=== PATIENT | female | born 1955 | race Caucasian/White ===

== ENCOUNTER 2020-04-11 10:13 | Emergency (ER) | payer MEDICARE, OTHER, SELFPAY ==
[2020-04-11] VITALS (17 sets, daily range): BP systolic 152–238; BP diastolic 70–126; PULSE 46–66; RESP 12–32; TEMP 36.4; O2SAT 97–100; BMI 30.9
--- NOTE | 2020-04-11 10:17 | XRR_ITS ---
PROCEDURE INFORMATION: Exam: XR Chest, 1 View Exam date and time: 04/11/2020 10:22 AM Age: 65 years old Clinical indication: Device placement; Ng tube; Additional info: Unresponsive TECHNIQUE: Imaging protocol: XR of the chest Views: 1 view. COMPARISON: CR Chest 1 [place] [id number] 07/31/2018 7:39 AM FINDINGS: Tubes, catheters and devices: Endotracheal and feeding tubes. The endotracheal tube terminates 2.0 cm above the rachel. The feeding tube courses into the gastric body with distal tip not visualized. Lungs: Hypoinflation and mild interstitial prominence. Pleural space: No significant pneumothorax or pleural effusion. Heart/Mediastinum: No cardiomegaly. Bones/joints: Multiple acute right rib fractures. XR/XR chest 1V portable [id number] IMPRESSION: Multiple acute right rib fractures. Endotracheal and feeding tube placement as described above.
--- NOTE | 2020-04-11 10:18 | CTR_ITS ---
PROCEDURE INFORMATION: Exam: CT Head Without Contrast Exam date and time: 04/11/2020 10:22 AM Age: 65 years old Clinical indication: Other: Unresponsive; Additional info: Symptoms of acute stroke TECHNIQUE: Imaging protocol: Computed tomography of the head without contrast. Radiation optimization: All CT scans at this facility use at least one of these dose optimization techniques: automated exposure control; mA and/or kV adjustment per patient size (includes targeted exams where dose is matched to clinical indication); or iterative reconstruction. COMPARISON: CT head wo con* [id number] 01/03/2018 9:06 PM RADIATION DOSE METRICS: Total DLP (mGy-cm): 793.31 FINDINGS: Brain: 2.7 cm mixed attenuation left subdural hematoma producing 1.8 cm of midline shift to the right. Emergent neurosurgical consultation recommended. Small-vessel ischemic change. Effacement of the left cortical sulci. Cerebral ventricles: Asymmetric caliber of the ventricles, with effacement of the left temporal and occipital horns. No hydrocephalus. Bones/joints: No acute calvarial pathology. Paranasal sinuses: Inflammatory change in the sinuses, disproportionately localized in the left maxillary sinus. Mastoid air cells: Partial opacification of the left mastoid air cells. Vasculature: Vascular and dural calcification. Soft tissues: Infiltration of subcutaneous fat in the left occipital region. CT/CT head wo con* [id number] IMPRESSION: 2.7 cm mixed attenuation left subdural hematoma producing 1.8 cm of midline shift to the right. Emergent neurosurgical consultation recommended. THIS REPORT CONTAINS FINDINGS THAT MAY BE CRITICAL TO PATIENT CARE. The findings were verbally communicated via telephone conference with ILAN Salamanca at 10:35 AM CDT on 04/11/2020. The findings were acknowledged and understood. Radiation Dose CTDIVOL = (mGy): DLP = 793.31 (mGy-cm)
--- NOTE | 2020-04-11 10:18 | ECG_ITS ---
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 Measurements Intervals [place] Rate: 52 P: 60 MT: 176 QRS: 52 QRSD: 100 T: 71 QT: 476 QTc: 444 Interpretive Statements SINUS BRADYCARDIA ST DEVIATION AND MODERATE T-WAVE ABNORMALITY, CONSIDER ANTERIOR ISCHEMIA [-0.1+ mV T WAVE IN V3/V4] Compared to ECG 07/31/2018 22:13:19 T-wave abnormality now present Possible ischemia now present Sinus rhythm no longer present Electronically Signed On 04-11-2020 22:04:03 CDT by Sarahi Campos M.D. [id number] f
[2020-04-11] MEDS: succinylcholine 20 mg/mL SDV 10mL 100 MG IVP (10:33)
[2020-04-11] MEDS: propofol 1,000 MG/100 ML INJ 6.7 MG IV (10:37)
[2020-04-11 10:49] LABS: Basophils # 0.1 10^3/uL (0.0-0.1); Basophils % 0.6 %; Eosinophils # 0.1 10^3/uL (0.0-0.8); Eosinophils % 0.4 %; Hematocrit 36.6 % (37.0-47.0); Hemoglobin 12.4 g/dL (11.5-15.3); Lymphocytes # 2.9 10^3/uL (0.8-4.8); Mean Corpuscular HGB Conc 33.9 g/dL (30.0-36.0); Mean Corpuscular Hemoglobin 30.1 pg (28.0-34.0); Mean Corpuscular Volume 88.8 fL (81-99); Mean Platelet Volume 8.3 fL (7.4-10.4); Monocytes # 0.9 10^3/uL (0.2-0.9); Monocytes % 4.8 %; Neutrophils # 15.05 10^3/uL (1.8-7.7); Neutrophils % 78.7 %; Nucleated Red Blood Cells % 0 %; Platelet Count 489 10^3/cmm (130-400); Red Blood Count 4.12 10^6/uL (4.1-5.3); White Blood Count 19.1 10^3/uL (4.0-10.0)
--- NOTE | 2020-04-11 11:04 | W.ED.NEUROSD ---
HPI - Neuro Symptoms/Deficit General: Chief Complaint: Neuro Symptoms/Deficit Stated Complaint: Stroke alert/unresponsive Time Seen by Provider: 04/11/20 10:17 History of Present Illness: HPI Narrative: 65-year-old female arrives by EMS approximately 30 to 45 minutes after being found down by the . She was found slumped and unresponsive on the toilet. She was last seen as an and known well at around 5 AM. On arrival here she has a GCS of 3 and is unresponsive to painful stimuli. Her only known anticoagulant is Plavix. All history is retrieved from an old H&P from July 2018. On arrival pt had GCS of 3 Last Observed Normal: 05:00 Timing confirmed by: family member Review of Systems General: Reports: ROS unobtainable due to endotracheal tube and ROS unobtainable due to medical condition NIH stroke score NIHSS: Level Of Consciousness - 1a: 3 If Intubated/Physcial Barrier - Explain: Patient is a GCS of 3 unable to assess Physical Exam HENMT: COMMON NORMALS: normocephalic and atraumatic HEAD & SCALP: normocephalic and atraumatic Eye: COMMON NORMALS: Equal, round and reactive pupils present, conjunctivae normal and no scleral icterus CONJUNCTIVA: Yes conjunctivae normal PUPIL: Yes Equal, round and reactive pupils present Neck/C-Spine: COMMON NORMALS: no JVD Resp: COMMON NORMALS: normal respiratory effort, No retractions, No use of accessory muscles and clear to auscultation bilaterally AUSCULTATION: clear to auscultation bilaterally Cardio: COMMON NORMALS: no JVD, regular rate, regular rhythm and No murmurs present (Cardio) RATE: regular rate RHYTHM: regular rhythm GI: COMMON NORMALS: Soft to palpation and No hepatosplenomegaly present AUSCULTATION: Yes normoactive bowel sounds PALPATION: Yes Soft to palpation, No Tenderness to palpation present (GI), No Guarding due to palpation present (GI) and Yes No hepatosplenomegaly present Neuro: CHARLENE COMA SCALE: document GCS findings Charlene coma scale eye opening: None Charlene coma scale verbal response: None Mcneal coma scale motor response: None Charlene coma scale total score: 3 Procedures Intubation Time out performed: Yes sedative: Etomidate paralytic: Succinylcholine Laryngoscope: fiber optic video scope Assist Device Used: fiber optic device ET Tube Size: 8.5 ET Tube Uncuffed: No Tube Secured Depth (cm): 22 Tube Placement Confirmation: visualized tube passing through cords, equal breath sounds bilaterally, no breath sounds over epigastrium and confirmation by capnometry Patient Tolerated Procedure: well Intubation Complications: none Course Vital Signs: Vital signs: Vital Signs Temperature 97.6 F 04/11/20 10:15 Pulse Rate 49 L 04/11/20 15:56 Respiratory Rate 18 04/11/20 15:56 Blood Pressure 165/94 04/11/20 15:56 Pulse Oximetry 99 04/11/20 15:56 MDM - Neuro Symptoms/Deficit MDM Narrative: Medical decision making narrative: Patient has acute subdural hematoma called and talked to neurosurgery they will accept her however given the timeframe she is already been down for quite some time her GCS was 3 when she arrived here she was emergently intubated surgeons not sure there can be able to do much for them and provide comfort cares discussed with the family multiple times they wish to proceed with transfer to see if there is any potential treatments available. Lab Data: Labs: Lab Results 04/11/20 04/11/20 04/11/20 Range/Units 10:34 10:34 10:34 WBC 19.1 H (4.0-10.0) 10^3/ uL RBC 4.12 (4.1-5.3) 10^6/u L Hgb 12.4 (11.5-15.3) g/dL Hct 36.6 L (37.0-47.0) % MCV 88.8 (81-99) fL MCH 30.1 (28.0-34.0) pg MCHC 33.9 (30.0-36.0) g/dL RDW 11.0 L (12.1-15.1) % Plt Count 489 H (130-400) 10^3/c mm MPV 8.3 (7.4-10.4) fL Neut % (Auto) 78.7 % Lymph % (Auto) 15.0 % [place] % (Auto) 4.8 % Eos % (Auto) 0.4 % Baso % (Auto) 0.6 % Neut # (Auto) 15.05 H (1.8-7.7) 10^3/u L Lymph # (Auto) 2.9 (0.8-4.8) 10^3/u L [place] # (Auto) 0.9 (0.2-0.9) 10^3/u L Eos # (Auto) 0.1 (0.0-0.8) 10^3/u L Baso # (Auto) 0.1 (0.0-0.1) 10^3/u L Nucleated RBC % (a uto) 0 % Nucleated RBCs # 0.0 /100WBC PT 12.40 (12.1-14.9) SECO NDS INR 0.90 (0.8-1.2) APTT 23.4 L (23.9-36.7) SECO NDS Specimen Type Sample Site ABG pH (7.35-7.45) ABG pCO2 (35-45) mmHg ABG pO2 (80.0-100.0) mmH g ABG HCO3 (22-26) mmol/L ABG O2 Saturation ABG Base Excess (-2.0-2.0) mmol/ L Darío Test A-a O2 Gradient (5-10) mmHg Hematocrit (37-47) % Hgb O2 Saturation (95-100) % Carboxyhemoglobin (0.4-20.1) %THgb Methemoglobin (0.4-1.5) % Total Hemoglobin (12-16) g/dL Ionized Calcium (1.1-1.4) mmol/L O2 Delivery Device FiO2 % Tidal Volume PEEP cmH20 Nursing Unit Coordinator ID Sodium 123 L (136-145) mmol/L Potassium 3.5 (3.5-5.1) mmol/L Chloride 89 L (98-107) mmol/L Carbon Dioxide 20 L (22-29) mmol/L Anion Gap 17.5 (5-19) BUN 8 (8-23) mg/dL Creatinine 0.6 (0.5-0.9) mg/dL GFR Calculation 100.3 (90-130) mL/min Glucose 183 H (65-115) mg/dL Calculated Osmolal ity 259 L (285-295) mOsm/k g Calcium 8.9 (8.5-10.5) mg/dL Total Bilirubin 0.2 (0.15-1.2) mg/dL AST 17 (0-32) U/L ALT 22 (0-33) U/L Alkaline Phosphata se 107 H (35-105) IU/L Total Protein 8.2 (6.6-8.7) g/dL Albumin 4.3 (3.5-5.2) g/dL Globulin 3.9 (1.3-4.6) g/dL Urine Color (Yellow) Urine Appearance (CLEAR) Urine pH (5-7) Ur Specific Gravit y (1.005-1.030) Urine Protein (Negative) Urine Glucose (UA) (Normal) Urine Ketones (Negative) Urine Blood (Negative) Urine Nitrate (Negative) Urine Bilirubin (Negative) Urine Urobilinogen (Negative) mg/dL Ur Leukocyte Jaci ase (Negative) Urine RBC (0-2) /hpf Urine WBC (0-5) /hpf Ur Squamous Epith Cells (0-5) /hpf Amorphous Sediment Urine Bacteria (NONE) /hpf Urine Opiates Scre en (Negative) ng/mL Ur Barbiturates Sc reen (Negative) ng/mL Ur Phencyclidine S crn (Negative) ng/mL Ur Amphetamines Sc reen (Negative) ng/mL U Benzodiazepines Scrn (Negative) ng/mL Urine Cocaine Scre en (Negative) ng/mL U Marijuana (THC) Screen (Negative) ng/mL Nasal/Oral COVID-1 9 PCR SARS-CoV-2 Ag (Rap id) (Negative) Blood Type Rho(D) Type 04/11/20 04/11/20 04/11/20 Range/Units 10:41 10:41 11:22 WBC (4.0-10.0) 10^3/ uL RBC (4.1-5.3) 10^6/u L Hgb (11.5-15.3) g/dL Hct (37.0-47.0) % MCV (81-99) fL MCH (28.0-34.0) pg MCHC (30.0-36.0) g/dL RDW (12.1-15.1) % Plt Count (130-400) 10^3/c mm MPV (7.4-10.4) fL Neut % (Auto) % Lymph % (Auto) % [place] % (Auto) % Eos % (Auto) % Baso % (Auto) % Neut # (Auto) (1.8-7.7) 10^3/u L Lymph # (Auto) (0.8-4.8) 10^3/u L [place] # (Auto) (0.2-0.9) 10^3/u L Eos # (Auto) (0.0-0.8) 10^3/u L Baso # (Auto) (0.0-0.1) 10^3/u L Nucleated RBC % (a uto) % Nucleated RBCs # /100WBC PT (12.1-14.9) SECO NDS INR (0.8-1.2) APTT (23.9-36.7) SECO NDS Specimen Type Arterial Sample Site Radial, right ABG pH 7.40 (7.35-7.45) ABG pCO2 31.6 L (35-45) mmHg ABG pO2 366.0 H (80.0-100.0) mmH g ABG HCO3 19.4 L (22-26) mmol/L ABG O2 Saturation > 100.0 ABG Base Excess -4.6 L (-2.0-2.0) mmol/ L Darío Test Pos A-a O2 Gradient 39.3 H (5-10) mmHg Hematocrit 38.7 (37-47) % Hgb O2 Saturation 98.9 (95-100) % Carboxyhemoglobin 0.6 (0.4-20.1) %THgb Methemoglobin 1.0 (0.4-1.5) % Total Hemoglobin 12.6 (12-16) g/dL Ionized Calcium 1.1 (1.1-1.4) mmol/L O2 Delivery Device Vent FiO2 100.0 % Tidal Volume 0.45 PEEP 8.0 cmH20 Nursing Unit Coordinator ID Ed Sodium 124.0 L (136-145) mmol/L Potassium 3.1 L (3.5-5.1) mmol/L Chloride (98-107) mmol/L Carbon Dioxide (22-29) mmol/L Anion Gap (5-19) BUN (8-23) mg/dL Creatinine (0.5-0.9) mg/dL GFR Calculation (90-130) mL/min Glucose 184.0 H (65-115) mg/dL Calculated Osmolal ity (285-295) mOsm/k g Calcium (8.5-10.5) mg/dL Total Bilirubin (0.15-1.2) mg/dL AST (0-32) U/L ALT (0-33) U/L Alkaline Phosphata se (35-105) IU/L Total Protein (6.6-8.7) g/dL Albumin (3.5-5.2) g/dL Globulin (1.3-4.6) g/dL Urine Color Colorless (Yellow) Urine Appearance Clear (CLEAR) Urine pH 7 (5-7) Ur Specific Gravit y 1.005 (1.005-1.030) Urine Protein 1+ H (Negative) Urine Glucose (UA) Trace H (Normal) Urine Ketones Negative (Negative) Urine Blood 2+ H (Negative) Urine Nitrate Negative (Negative) Urine Bilirubin Neg (Negative) Urine Urobilinogen Norm (Negative) mg/dL Ur Leukocyte Jaci ase Negative (Negative) Urine RBC None (0-2) /hpf Urine WBC 0-4 H (0-5) /hpf Ur Squamous Epith Cells 5-10 H (0-5) /hpf Amorphous Sediment Not Reportable Urine Bacteria 3+ H (NONE) /hpf Urine Opiates Scre en Negative (Negative) ng/mL Ur Barbiturates Sc reen Negative (Negative) ng/mL Ur Phencyclidine S crn Negative (Negative) ng/mL Ur Amphetamines Sc reen Negative (Negative) ng/mL U Benzodiazepines Scrn Negative (Negative) ng/mL Urine Cocaine Scre en Negative (Negative) ng/mL U Marijuana (THC) Screen Negative (Negative) ng/mL Nasal/Oral COVID-1 9 PCR SARS-CoV-2 Ag (Rap id) (Negative) Blood Type Rho(D) Type 04/11/20 04/11/20 04/11/20 Range/Units 12:00 12:00 12:48 WBC (4.0-10.0) 10^3/ uL RBC (4.1-5.3) 10^6/u L Hgb (11.5-15.3) g/dL Hct (37.0-47.0) % MCV (81-99) fL MCH (28.0-34.0) pg MCHC (30.0-36.0) g/dL RDW (12.1-15.1) % Plt Count (130-400) 10^3/c mm MPV (7.4-10.4) fL Neut % (Auto) % Lymph % (Auto) % [place] % (Auto) % Eos % (Auto) % Baso % (Auto) % Neut # (Auto) (1.8-7.7) 10^3/u L Lymph # (Auto) (0.8-4.8) 10^3/u L [place] # (Auto) (0.2-0.9) 10^3/u L Eos # (Auto) (0.0-0.8) 10^3/u L Baso # (Auto) (0.0-0.1) 10^3/u L Nucleated RBC % (a uto) % Nucleated RBCs # /100WBC PT (12.1-14.9) SECO NDS INR (0.8-1.2) APTT (23.9-36.7) SECO NDS Specimen Type Sample Site ABG pH (7.35-7.45) ABG pCO2 (35-45) mmHg ABG pO2 (80.0-100.0) mmH g ABG HCO3 (22-26) mmol/L ABG O2 Saturation ABG Base Excess (-2.0-2.0) mmol/ L Darío Test A-a O2 Gradient (5-10) mmHg Hematocrit (37-47) % Hgb O2 Saturation (95-100) % Carboxyhemoglobin (0.4-20.1) %THgb Methemoglobin (0.4-1.5) % Total Hemoglobin (12-16) g/dL Ionized Calcium (1.1-1.4) mmol/L O2 Delivery Device FiO2 % Tidal Volume PEEP cmH20 Nursing Unit Coordinator ID Sodium (136-145) mmol/L Potassium (3.5-5.1) mmol/L Chloride (98-107) mmol/L Carbon Dioxide (22-29) mmol/L Anion Gap (5-19) BUN (8-23) mg/dL Creatinine (0.5-0.9) mg/dL GFR Calculation (90-130) mL/min Glucose (65-115) mg/dL Calculated Osmolal ity (285-295) mOsm/k g Calcium (8.5-10.5) mg/dL Total Bilirubin (0.15-1.2) mg/dL AST (0-32) U/L ALT (0-33) U/L Alkaline Phosphata se (35-105) IU/L Total Protein (6.6-8.7) g/dL Albumin (3.5-5.2) g/dL Globulin (1.3-4.6) g/dL Urine Color (Yellow) Urine Appearance (CLEAR) Urine pH (5-7) Ur Specific Gravit y (1.005-1.030) Urine Protein (Negative) Urine Glucose (UA) (Normal) Urine Ketones (Negative) Urine Blood (Negative) Urine Nitrate (Negative) Urine Bilirubin (Negative) Urine Urobilinogen (Negative) mg/dL Ur Leukocyte Jaci ase (Negative) Urine RBC (0-2) /hpf Urine WBC (0-5) /hpf Ur Squamous Epith Cells (0-5) /hpf Amorphous Sediment Urine Bacteria (NONE) /hpf Urine Opiates Scre en (Negative) ng/mL Ur Barbiturates Sc reen (Negative) ng/mL Ur Phencyclidine S crn (Negative) ng/mL Ur Amphetamines Sc reen (Negative) ng/mL U Benzodiazepines Scrn (Negative) ng/mL Urine Cocaine Scre en (Negative) ng/mL U Marijuana (THC) Screen (Negative) ng/mL Nasal/Oral COVID-1 9 PCR Negative SARS-CoV-2 Ag (Rap id) Negative (Negative) Blood Type A Positive Rho(D) Type Positive Critical Care Time Critical Care Time: Critical Care Time: Yes Total Critical Care Time: 45 Attestation: This case had a high probability of a clinically significant, sudden, or life threatening deterioration of this patient's condition which required my full and direct attention, intervention and personal management. 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
[2020-04-11 11:08] LABS: Partial Thromboplastin Time 23.4 SECONDS (23.9-36.7)
[2020-04-11 11:10] LABS: ABG PCO2 31.6 mmHg (35-45); Alveolar-Arterial Oxygen Gradi 39.3 mmHg (5-10); Arterial Blood Gas Hematocrit 38.7 % (37-47); Base Excess ABG -4.6 mmol/L (-2.0-2.0); Blood Gas Allen Test Pos; Blood Gas Operator Identificat ED; Blood Gas Sample Site Radial, right; Blood Gas Sample Type Arterial; Blood Gas Tidal Volume 0.45; Carboxyhemoglobin 0.6 %THgb (0.4-20.1); HCO3 ABG 19.4 mmol/L (22-26); HGB O2 Sat 98.9 % (95-100); Ionized Calcium Level - ABG 1.1 mmol/L (1.1-1.4); Oxygen Device VENT; Oxygen Saturation ABG > 100.0; Potassium Level - ABG 3.1 mmol/L (3.5-5.0); Total Hemoglobin 12.6 g/dL (12-16)
[2020-04-11 11:16] LABS: Alanine Aminotransferase 22 U/L (0-33); Albumin Level 4.3 g/dL (3.5-5.2); Alkaline Phosphatase 107 IU/L (35-105); Anion Gap 17.5 (5-19); Aspartate Amino Transferase 17 U/L (0-32); Blood Urea Nitrogen 8 mg/dL (8-23); Calcium 8.9 mg/dL (8.5-10.5); Carbon Dioxide 20 mmol/L (22-29); Chloride 89 mmol/L (98-107); Globulin 3.9 g/dL (1.3-4.6); Glomerular Filtration Rate 100.3 mL/min (90-130); Glucose 183 mg/dL (65-115); Osmolality Calculated 259 mOsm/kg (285-295); Potassium 3.5 mmol/L (3.5-5.1); Sodium 123 mmol/L (136-145); Total Bilirubin 0.2 mg/dL (0.15-1.2); Total Protein 8.2 g/dL (6.6-8.7)
--- NOTE | 2020-04-11 11:16 | PC.NURSE ---
Pt arrived to ED for c/o stroke alert called at 0951. Pt went immediately to CT upon arrival at 1013, Dr Laura at bedside. Pt CT read by Dr Laura in radiology. Pt brought back to room at 1014, placed in a gown, RT called for intubation. 20g IV obtained to left AC at 1030. Pt was showing some decorticate posturing at this time. Pt given 30mg etomidate at 1033, 100mg succinocholine at 1033, intubated at 1035 with 8.0 tube, 22 at the [facility]. Propofol gtt started at 15 at 1037, 14Fr OG placed at this time as well. Post-intubation XR performed at bedside at 1040, VO from Dr Laura to pull ETT out approx 2cm, RT at bedside to perform this at 1041. Nguyen 18Fr placed at 1047, UA and sputum obtained at this time, EKG performed at this time. Pt VS showed pt BP dropped too low too quickly, propofol gtt titrated down to 12mcg/kg/min at 1054. Vent settings initially 450 TV, RR 14, Peep of 8, FiO2 100%. See Mar and notes for other times.
[2020-04-11 11:20] LABS: Amphetamines Screen Urine Negative (Negative); Barbiturates Screen Urine Negative (Negative); Benzodiazepines Screen Urine Negative (Negative); Cocaine Screen Urine Negative (Negative); Opiate Screen Urine Negative (Negative); PCP Screen Urine Negative (Negative); THC Screen Urine Negative (Negative)
[2020-04-11 11:28] LABS: Add Urine Microscopic? YES; Bilirubin Urine Neg (Negative); Blood Urine 2+ (Negative); Glucose Urine UA Trace (Normal); Ketones Urine Negative (Negative); Leukocyte Esterase Urine Negative (Negative); Nitrate Urine Negative (Negative); Protein Urine 1+ (Negative); Specific Gravity, Urine 1.005 (1.005-1.030); Urine Appearance Clear (CLEAR); Urine Color Colorless (Yellow); Urobilinogen Urine Norm (Negative); pH Urine 7 (5-7)
[2020-04-11 11:29] LABS: Add Urine Culture? Yes; Bacteria Urine 3+ /hpf; WBC Urine 0-4 /hpf (0-5)
[2020-04-11 12:37] LABS: SARS Covid-2 Antigen Negative (Negative)
[2020-04-11] MEDS: mannitol 12.5 gm/50 mL (25%) SDV IV (12:55)
[2020-04-13 06:54] LABS: Coronavirus Lab Test PTC Negative
== END 2020-04-11 16:03 ==
PROVIDERS: Emergency Provider Family Medicine; PCP Internal Medicine Nephrology
DX: I62.01 Nontraumatic acute subdural hemorrhage (principal)
CPT/HCPCS: 12345; 31500; 36415; 36430; 51702; 70450; 71045; 80051; 80053; 80306; 81001; 82810; 83986; 85025; 85610; 85730; 86900; 87070; 87086; 87205; 87426; 87635; 93005; 94799; 96365; 96375; 99284; 99291; J0330; J1953; J2150; J2704; J3490; P9016; P9035